=== PATIENT | female | born 1965 | race Caucasian/White ===

== ENCOUNTER 2017-05-29 13:48 | Observation (INO) ==
--- NOTE | 2017-05-29 14:03 | Emergency Department Note ---
Disposition Clinical Impression: Suicidal ideation Disposition: Transfer Short-Term Hosp Condition: Good Referrals: NO,PCP [Primary Care Provider] - Forms: ED Satisfaction Letter General Adult HPI - General Chief complaint: ED Psychiatric Symptoms Stated complaint: "SI" Time Seen by Provider: 05/29/17 13:55 Nursing Notes Reviewed: Yes Vital Signs Reviewed: Yes - Related Data Previous Rx's Medication Instructions Recorded LORazepam [Ativan] 1 mg PO TID PRN #5 tablet 08/19/15 Allergies Allergy/AdvReac Type Severity Reaction Status Date / Time Amoxicillin [From Augmentin] Allergy Anaphylaxis Verified 05/29/17 13:51 cephalexin Allergy Anaphylaxis Verified 05/29/17 13:51 clavulanic acid Allergy Anaphylaxis Verified 05/29/17 13:51 [From Augmentin] codeine Allergy Anaphylaxis Verified 05/29/17 13:51 diphenhydramine Allergy Anaphylaxis Verified 05/29/17 13:51 [From Benadryl] egg Allergy Anaphylaxis Verified 05/29/17 13:51 Erythromycin Base Allergy Anaphylaxis Verified 05/29/17 13:51 [From Erythrocin] hydroxyzine [From Vistaril] Allergy Anaphylaxis Verified 05/29/17 13:51 meperidine [From Demerol] Allergy Anaphylaxis Verified 05/29/17 13:51 nitrofurantoin Allergy Anaphylaxis Verified 05/29/17 13:51 [From Macrodantin] Penicillins Allergy Anaphylaxis Verified 05/29/17 13:51 Sulfa (Sulfonamide Allergy Anaphylaxis Verified 05/29/17 13:51 Antibiotics) Tomato Allergy Anaphylaxis Verified 05/29/17 13:51 Past Medical History - Past Medical History Medical history: Reports: asthma, COPD, CVA, diabetes, GERD, hyperlipidemia, other Psychiatric history: Reports: anxiety, depression - Social History Smoking Status: Never smoker Smokeless Tobacco Status: No Alcohol use: Reports: none Drug use: Reports: none Course Vital Signs Temperature 98.6 F 05/29/17 13:51 Pulse Rate 76 05/29/17 13:51 Respiratory Rate 18 05/29/17 13:51 Blood Pressure 135/95 05/29/17 13:51 O2 Sat by Pulse Oximetry 99 05/29/17 13:51 Temperature 98.6 F 05/29/17 13:51 Pulse Rate 76 05/29/17 13:51 Respiratory Rate 18 05/29/17 13:51 Blood Pressure 135/95 05/29/17 13:51 O2 Sat by Pulse Oximetry 99 05/29/17 13:51 Oxygen Delivery Oxygen Delivery Room Air Medical Decision Making - MDM Narrative Medical decision making narrative: I examined this patient and my medical decision-making was reviewed with the INFORMATION CODER/PA/Advanced Practice Nurse/Resident Physician. I agree with the documented findings, disposition and treatment plan as described except to the extent set forth below. Patient was seen on arrival by EMS by myself and Dr. Fleming, I agree with his evaluation & management plan, I supervised the care of the patient's stay. Patient arrived from [facility] where she had some suicidal ideations which she is denying now. She denies any homicidal ideations. She denies any hallucinations this point. They asked that we get preassigned labs that they want for psychiatric clearance were in order those, she will be a no AMA, suicide precautions with a sitter. Once her labs are back we will discuss those with her treatment center and then determine best disposition which will most likely be reevaluation by them. She is in agreement with this plan. 1520 hrs.: Patient's labs are back. We were going to discuss them with her caregivers at the psychiatric facility. My expectation is that she will be transferred back there once she has clearance. Updated patient on the plan. She has been cooperative here. 1720 hrs., after updating the psychiatric facility, they have stated that [facility] has accepted the patient for admission. Patient's in agreement with plan. I will ask them if she needs a 72 hour hold slip sign before admission. - Lab Data Result diagrams: 05/29/17 14:33 05/29/17 14:33 Lab Results 05/29/17 05/29/17 05/29/17 Range/Units 14:33 14:33 14:52 WBC 7.8 (4.3-11.1) K/mcL RBC 5.17 H (3.82-4.97) M/mcL Hgb 14.1 (11.5-15.4) g/dL Hct 44.1 (35.3-44.9) % MCV 85.3 (83.0-100.0) fL MCH 27.3 L (28.0-33.3) pg MCHC 32.0 (31.6-35.5) g/dL RDW 12.7 (11.5-14.5) % Plt Count 259 (140-400) K/mcL MPV 10.6 (9.4-12.4) fL Immature Gran % 0.4 (0-4) % Seg Neutrophils % 70.3 % Lymphocytes % 21.4 % Monocytes % 5.0 % Eosinophils % 2.4 % Basophils % 0.5 % Neutrophils # 5.5 (1.6-8.9) K/mcL Lymphocytes # 1.7 (0.6-4.6) K/mcL Monocytes # 0.4 (0.0-1.3) K/mcL Eosinophils # 0.2 (0.0-0.6) K/mcL Basophils # 0.0 (0.0-0.2) K/mcL Sodium 143 (136-145) mEq/L Potassium 4.2 (3.5-4.5) mEq/L Chloride 109 (98-109) mEq/L Carbon Dioxide 27 (19-29) mEq/L BUN 10 (7-20) mg/dL Creatinine 0.78 (0.57-1.11) mg/dL Est GFR ( Amer) > 60 (> 60) Est GFR (Non-Af Amer) > 60 (> 60) BUN/Creatinine Ratio 13 (6-26) Glucose 127 H (70-99) mg/dL Calculated Osmolality 297 (280-300) Calcium 9.9 (8.6-10.8) mg/dL Total Bilirubin 0.9 (0.2-1.2) mg/dL AST 20 (5-34) Units/L ALT 18 (0-55) Units/L Alkaline Phosphatase 124 (38-126) Units/L Serum Total Protein 7.8 (6.0-8.3) g/dL Albumin 4.1 (3.5-5.0) g/dL Globulin 3.7 H (2.4-3.5) g/dL Albumin/Globulin Ratio 1.1 (1.1-2.2) Urine Color Yellow (Yellow) Urine Clarity Clear (Clear) Urine pH 7.0 (5.0-8.0) pH Units Ur Specific [place] 1.013 (1.010-1.025) Urine Protein Negative (Neg-Trace) mg/dL Urine Glucose (UA) Normal (Normal) mg/dL Urine Ketones Negative (Negative) mg/dL Urine Blood Negative (Negative) Urine Nitrite Negative (Negative) Urine Bilirubin Negative (Negative) Urine Urobilinogen Normal (Normal) mg/dL Ur Leukocyte Esterase Negative (Negative) Ur Culture Indicated? NO (NO) Salicylates < 5.0 L (15-30) mg/dL Urine Opiates Screen (Jqgngm=453) ng/mL Acetaminophen < 1.0 L (10-30) mcg/mL Ur Barbiturates Screen (Tmmafg=972) ng/mL Ur Phencyclidine Scrn (Cutoff=25) ng/mL Ur Amphetamines Screen (Nbonmn=3499) ng/mL U Benzodiazepines Scrn (Eigzju=023) ng/mL Urine Cocaine Screen (Cutoff= 300) ng/mL U Marijuana (THC) Screen (Cutoff = 50) ng/mL Ethyl Alcohol < 10 (0-10) mg/dL 05/29/17 Range/Units 14:52 WBC (4.3-11.1) K/mcL RBC (3.82-4.97) M/mcL Hgb (11.5-15.4) g/dL Hct (35.3-44.9) % MCV (83.0-100.0) fL MCH (28.0-33.3) pg MCHC (31.6-35.5) g/dL RDW (11.5-14.5) % Plt Count (140-400) K/mcL MPV (9.4-12.4) fL Immature Gran % (0-4) % Seg Neutrophils % % Lymphocytes % % Monocytes % % Eosinophils % % Basophils % % Neutrophils # (1.6-8.9) K/mcL Lymphocytes # (0.6-4.6) K/mcL Monocytes # (0.0-1.3) K/mcL Eosinophils # (0.0-0.6) K/mcL Basophils # (0.0-0.2) K/mcL Sodium (136-145) mEq/L Potassium (3.5-4.5) mEq/L Chloride (98-109) mEq/L Carbon Dioxide (19-29) mEq/L BUN (7-20) mg/dL Creatinine (0.57-1.11) mg/dL Est GFR ( Amer) (> 60) Est GFR (Non-Af Amer) (> 60) BUN/Creatinine Ratio (6-26) Glucose (70-99) mg/dL Calculated Osmolality (280-300) Calcium (8.6-10.8) mg/dL Total Bilirubin (0.2-1.2) mg/dL AST (5-34) Units/L ALT (0-55) Units/L Alkaline Phosphatase (38-126) Units/L Serum Total Protein (6.0-8.3) g/dL Albumin (3.5-5.0) g/dL Globulin (2.4-3.5) g/dL Albumin/Globulin Ratio (1.1-2.2) Urine Color (Yellow) Urine Clarity (Clear) Urine pH (5.0-8.0) pH Units Ur Specific [place] (1.010-1.025) Urine Protein (Neg-Trace) mg/dL Urine Glucose (UA) (Normal) mg/dL Urine Ketones (Negative) mg/dL Urine Blood (Negative) Urine Nitrite (Negative) Urine Bilirubin (Negative) Urine Urobilinogen (Normal) mg/dL Ur Leukocyte Esterase (Negative) Ur Culture Indicated? (NO) Salicylates (15-30) mg/dL Urine Opiates Screen Negative (Gyocuu=663) ng/mL Acetaminophen (10-30) mcg/mL Ur Barbiturates Screen Negative (Icakzh=864) ng/mL Ur Phencyclidine Scrn Negative (Cutoff=25) ng/mL Ur Amphetamines Screen Negative (Ktkhtk=7360) ng/mL U Benzodiazepines Scrn Negative (Hqioed=885) ng/mL Urine Cocaine Screen Negative (Cutoff= 300) ng/mL U Marijuana (THC) Screen Negative (Cutoff = 50) ng/mL Ethyl Alcohol (0-10) mg/dL
[2017-05-29 14:39] LABS: Basophils % 0.5 %; Eosinophils # 0.2 K/mcL (0.0-0.6); Eosinophils % 2.4 %; Hematocrit 44.1 % (35.3-44.9); Hemoglobin 14.1 g/dL (11.5-15.4); Immature Granulocytes % 0.4 % (0-4); Lymphocytes # 1.7 K/mcL (0.6-4.6); Lymphocytes % 21.4 %; Mean Corpuscular Hemoglobin 27.3 pg (28.0-33.3); Mean Corpuscular Volume 85.3 fL (83.0-100.0); Mean Platelet Volume 10.6 fL (9.4-12.4); Monocytes # 0.4 K/mcL (0.0-1.3); Neutrophils # 5.5 K/mcL (1.6-8.9); Platelet Count 259 K/mcL (140-400); Red Blood Count 5.17 M/mcL (3.82-4.97); Red Cell Distribution Width 12.7 % (11.5-14.5); Segmented Neutrophils % 70.3 %
[2017-05-29 14:55] LABS: Alanine Aminotransferase 18 Units/L (0-55); Albumin 4.1 g/dL (3.5-5.0); Albumin/Globulin Ratio 1.1 (1.1-2.2); Alkaline Phosphatase 124 Units/L (38-126); Aspartate Amino Transferase 20 Units/L (5-34); BUN/Creatinine Ratio 13 (6-26); Bilirubin,Total 0.9 mg/dL (0.2-1.2); Blood Urea Nitrogen 10 mg/dL (7-20); Calcium 9.9 mg/dL (8.6-10.8); Carbon Dioxide 27 mEq/L (19-29); Chloride 109 mEq/L (98-109); Globulin 3.7 g/dL (2.4-3.5); Glucose 127 mg/dL (70-99); Osmolality,Calculated 297 (280-300); Potassium 4.2 mEq/L (3.5-4.5); Sodium 143 mEq/L (136-145); Total Protein 7.8 g/dL (6.0-8.3); eGFR For African Americans > 60 (> 60); eGFR For Non-African Americans > 60 (> 60)
[2017-05-29 15:01] LABS: Bilirubin,Urine Negative (Negative); Blood,Urine Negative (Negative); Color,Urine Yellow (Yellow); Glucose,Urine (UA) Normal (Normal); Ketones,Urine Negative (Negative); Leukocyte Esterase,Urine Negative (Negative); Nitrite,Urine Negative (Negative); Protein,Urine Negative (Neg-Trace); Specific Gravity,Urine 1.013 (1.010-1.025); Urobilinogen,Urine Normal (Normal)
[2017-05-29 15:05] LABS: Acetaminophen < 1.0 mcg/mL (10-30); Ethanol < 10 mg/dL (0-10); Salicylate < 5.0 mg/dL (15-30)
--- NOTE | 2017-05-29 15:05 | Emergency Department Note ---
Disposition Clinical Impression: Suicidal ideation Disposition: Transfer Short-Term Hosp Condition: Good Time of Disposition: 16:58 Psych HPI - General Chief Complaint: ED Psychiatric Symptoms Stated Complaint: "SI" Time Seen by Provider: 05/29/17 13:55 Source: patient Mode of arrival: ambulatory Limitations: no limitations Nursing Notes Reviewed: Yes Vital Signs Reviewed: Yes - History of Present Illness HPI Narrative: 51-year-old female presents for feeling overwhelmed and stress. She currently denies any suicidal or homicidal ideation. She has been having racing thoughts through her mind all day today. She went to [facility] but was unable to be evaluated at that time. She reports being sent over for medical clearance. Patients gabapentin was recently increased from 300 to 900, 3 days ago. Otherwise no other new medication changes. She does have access to guns at home but they are in a locked box. She lives at home with ex- and his current and family. Her stresses are mainly due to family and home issues. She denies any drug or alcohol use. Denies any visual or auditory hallucinations. She denies any recent psychiatric hospitalization here. Denies any physical complaints at this time. She has a form from [facility] requesting inpatient placement for suicidal ideation lab requests which include CBC, 7, UDS, UA, Blood Alcohol and . Pt complaint: feels depressed, anxiety - Related Data Previous Rx's Medication Instructions Recorded LORazepam [Ativan] 1 mg PO TID PRN #5 tablet 08/19/15 Allergies Allergy/AdvReac Type Severity Reaction Status Date / Time Amoxicillin [From Augmentin] Allergy Anaphylaxis Verified 05/29/17 13:51 cephalexin Allergy Anaphylaxis Verified 05/29/17 13:51 clavulanic acid Allergy Anaphylaxis Verified 05/29/17 13:51 [From Augmentin] codeine Allergy Anaphylaxis Verified 05/29/17 13:51 diphenhydramine Allergy Anaphylaxis Verified 05/29/17 13:51 [From Benadryl] egg Allergy Anaphylaxis Verified 05/29/17 13:51 Erythromycin Base Allergy Anaphylaxis Verified 05/29/17 13:51 [From Erythrocin] hydroxyzine [From Vistaril] Allergy Anaphylaxis Verified 05/29/17 13:51 meperidine [From Demerol] Allergy Anaphylaxis Verified 05/29/17 13:51 nitrofurantoin Allergy Anaphylaxis Verified 05/29/17 13:51 [From Macrodantin] Penicillins Allergy Anaphylaxis Verified 05/29/17 13:51 Sulfa (Sulfonamide Allergy Anaphylaxis Verified 05/29/17 13:51 Antibiotics) Tomato Allergy Anaphylaxis Verified 05/29/17 13:51 All systems ED: reviewed and negative except as stated. Constitutional: Denies: fever, chills Cardiovascular: Denies: chest pain Respiratory: Denies: cough, dyspnea Gastrointestinal: Denies: abdominal pain, nausea, vomiting Genitourinary: Denies: urgency, dysuria Musculoskeletal: Denies: back pain Integumentary: Denies: rash Neurological: Denies: headache Psychiatric: Denies: suicidal thoughts, homicidal thoughts, auditory hallucinations, visual hallucinations Past Medical History - Past Medical History Attestation: Yes The following information was validated with the patient. Source: patient Medical history: Reports: asthma, COPD, CVA, diabetes, GERD, hyperlipidemia, other Psychiatric history: Reports: anxiety, depression - Social History Smoking Status: Never smoker Smokeless Tobacco Status: No Alcohol use: Reports: none Drug use: Reports: none Physical Exam - General General appearance: alert, in no apparent distress - Head Head exam: atraumatic, normocephalic, normal inspection - Eye Eye exam: Present: normal appearance, PERRL, EOMI - ENT ENT exam: normal exam, normal oropharynx, mucous membranes moist - Neck Neck exam: Present: normal inspection, full ROM, trachea midline - Chest Chest inspection: Present: normal inspection, symmetric chest wall rise - Respiratory Respiratory exam: Present: normal lung sounds bilaterally. Absent: respiratory distress, wheezes - Cardiovascular Cardiovascular exam: Present: regular rate, normal rhythm, normal heart sounds - Abdominal Exam Abdominal exam: Present: soft, Non-Tender, normal bowel sounds. Absent: tenderness, distention, guarding, rebound, rigidity - Extremities Exam Extremities exam: Present: normal inspection, full ROM, normal capillary refill. Absent: tenderness, pedal edema, calf tenderness - Back Exam Back exam: Present: normal inspection, full ROM. Absent: tenderness - Neurological Exam Neurological exam: Present: alert, oriented X3, normal gait - Psychiatric Psychiatric exam: Present: normal affect, normal mood - Skin Skin exam: Present: warm, dry, intact, normal color Course Course Narrative: 51-year-old female presents for medical clearance for [facility]. She currently denies any suicidal or homicidal ideation. Vital signs reviewed and are stable. She appears in no acute distress. Physical exam is otherwise unremarkable. Labs were drawn and reviewed. They are unremarkable other than glucose 127. Results have been faxed to [facility] at [phone]. Her continues to be a sitter at bedside. Impression is SI. - Reevaluation(s) Reevaluation #1: Informed by [facility] that patient was admitted with a bed down at [address] Spoke with the patient and she was unaware of this. Patient has been accepted by [facility]. Time: 17:28 Vital Signs Temperature 98.6 F 05/29/17 13:51 Pulse Rate 76 05/29/17 13:51 Respiratory Rate 18 05/29/17 13:51 Blood Pressure 135/95 05/29/17 13:51 O2 Sat by Pulse Oximetry 99 05/29/17 13:51 Temperature 98.6 F 05/29/17 13:51 Pulse Rate 76 05/29/17 13:51 Respiratory Rate 18 05/29/17 13:51 Blood Pressure 135/95 05/29/17 13:51 O2 Sat by Pulse Oximetry 99 05/29/17 13:51 Oxygen Delivery Oxygen Delivery Room Air Psych - Lab Data Lab results reviewed: Yes I reviewed the patient's lab results. Result diagrams: 05/29/17 14:33 05/29/17 14:33 Lab Results 05/29/17 05/29/17 05/29/17 Range/Units 14:33 14:33 14:52 WBC 7.8 (4.3-11.1) K/mcL RBC 5.17 H (3.82-4.97) M/mcL Hgb 14.1 (11.5-15.4) g/dL Hct 44.1 (35.3-44.9) % MCV 85.3 (83.0-100.0) fL MCH 27.3 L (28.0-33.3) pg MCHC 32.0 (31.6-35.5) g/dL RDW 12.7 (11.5-14.5) % Plt Count 259 (140-400) K/mcL MPV 10.6 (9.4-12.4) fL Immature Gran % 0.4 (0-4) % Seg Neutrophils % 70.3 % Lymphocytes % 21.4 % Monocytes % 5.0 % Eosinophils % 2.4 % Basophils % 0.5 % Neutrophils # 5.5 (1.6-8.9) K/mcL Lymphocytes # 1.7 (0.6-4.6) K/mcL Monocytes # 0.4 (0.0-1.3) K/mcL Eosinophils # 0.2 (0.0-0.6) K/mcL Basophils # 0.0 (0.0-0.2) K/mcL Sodium 143 (136-145) mEq/L Potassium 4.2 (3.5-4.5) mEq/L Chloride 109 (98-109) mEq/L Carbon Dioxide 27 (19-29) mEq/L BUN 10 (7-20) mg/dL Creatinine 0.78 (0.57-1.11) mg/dL Est GFR ( Amer) > 60 (> 60) Est GFR (Non-Af Amer) > 60 (> 60) BUN/Creatinine Ratio 13 (6-26) Glucose 127 H (70-99) mg/dL Calculated Osmolality 297 (280-300) Calcium 9.9 (8.6-10.8) mg/dL Total Bilirubin 0.9 (0.2-1.2) mg/dL AST 20 (5-34) Units/L ALT 18 (0-55) Units/L Alkaline Phosphatase 124 (38-126) Units/L Serum Total Protein 7.8 (6.0-8.3) g/dL Albumin 4.1 (3.5-5.0) g/dL Globulin 3.7 H (2.4-3.5) g/dL Albumin/Globulin Ratio 1.1 (1.1-2.2) Urine Color Yellow (Yellow) Urine Clarity Clear (Clear) Urine pH 7.0 (5.0-8.0) pH Units Ur Specific [place] 1.013 (1.010-1.025) Urine Protein Negative (Neg-Trace) mg/dL Urine Glucose (UA) Normal (Normal) mg/dL Urine Ketones Negative (Negative) mg/dL Urine Blood Negative (Negative) Urine Nitrite Negative (Negative) Urine Bilirubin Negative (Negative) Urine Urobilinogen Normal (Normal) mg/dL Ur Leukocyte Esterase Negative (Negative) Ur Culture Indicated? NO (NO) Salicylates < 5.0 L (15-30) mg/dL Urine Opiates Screen (Djlsru=193) ng/mL Acetaminophen < 1.0 L (10-30) mcg/mL Ur Barbiturates Screen (Feetsd=611) ng/mL Ur Phencyclidine Scrn (Cutoff=25) ng/mL Ur Amphetamines Screen (Orusep=5179) ng/mL U Benzodiazepines Scrn (Yehmzp=866) ng/mL Urine Cocaine Screen (Cutoff= 300) ng/mL U Marijuana (THC) Screen (Cutoff = 50) ng/mL Ethyl Alcohol < 10 (0-10) mg/dL 05/29/17 Range/Units 14:52 WBC (4.3-11.1) K/mcL RBC (3.82-4.97) M/mcL Hgb (11.5-15.4) g/dL Hct (35.3-44.9) % MCV (83.0-100.0) fL MCH (28.0-33.3) pg MCHC (31.6-35.5) g/dL RDW (11.5-14.5) % Plt Count (140-400) K/mcL MPV (9.4-12.4) fL Immature Gran % (0-4) % Seg Neutrophils % % Lymphocytes % % Monocytes % % Eosinophils % % Basophils % % Neutrophils # (1.6-8.9) K/mcL Lymphocytes # (0.6-4.6) K/mcL Monocytes # (0.0-1.3) K/mcL Eosinophils # (0.0-0.6) K/mcL Basophils # (0.0-0.2) K/mcL Sodium (136-145) mEq/L Potassium (3.5-4.5) mEq/L Chloride (98-109) mEq/L Carbon Dioxide (19-29) mEq/L BUN (7-20) mg/dL Creatinine (0.57-1.11) mg/dL Est GFR ( Amer) (> 60) Est GFR (Non-Af Amer) (> 60) BUN/Creatinine Ratio (6-26) Glucose (70-99) mg/dL Calculated Osmolality (280-300) Calcium (8.6-10.8) mg/dL Total Bilirubin (0.2-1.2) mg/dL AST (5-34) Units/L ALT (0-55) Units/L Alkaline Phosphatase (38-126) Units/L Serum Total Protein (6.0-8.3) g/dL Albumin (3.5-5.0) g/dL Globulin (2.4-3.5) g/dL Albumin/Globulin Ratio (1.1-2.2) Urine Color (Yellow) Urine Clarity (Clear) Urine pH (5.0-8.0) pH Units Ur Specific [place] (1.010-1.025) Urine Protein (Neg-Trace) mg/dL Urine Glucose (UA) (Normal) mg/dL Urine Ketones (Negative) mg/dL Urine Blood (Negative) Urine Nitrite (Negative) Urine Bilirubin (Negative) Urine Urobilinogen (Normal) mg/dL Ur Leukocyte Esterase (Negative) Ur Culture Indicated? (NO) Salicylates (15-30) mg/dL Urine Opiates Screen Negative (Kdgxci=000) ng/mL Acetaminophen (10-30) mcg/mL Ur Barbiturates Screen Negative (Mhhixh=977) ng/mL Ur Phencyclidine Scrn Negative (Cutoff=25) ng/mL Ur Amphetamines Screen Negative (Sbvkfn=9757) ng/mL U Benzodiazepines Scrn Negative (Ilhjff=028) ng/mL Urine Cocaine Screen Negative (Cutoff= 300) ng/mL U Marijuana (THC) Screen Negative (Cutoff = 50) ng/mL Ethyl Alcohol (0-10) mg/dL Psychiatric Medical Clearance - Medical Clearance Checklist Medical History: No Social History Section defined Current Vitals: Last Vital Signs Temp 98.6 F 05/29/17 13:51 Pulse 76 05/29/17 13:51 Resp 18 05/29/17 13:51 BP 135/95 05/29/17 13:51 Pulse Ox 99 05/29/17 13:51 Psychiatric Lab Panel: Drug Levels and Toxicity 05/29/17 05/29/17 14:33 14:52 Urine Opiates Screen Negative Acetaminophen < 1.0 L Ur Barbiturates Screen Negative Ur Phencyclidine Scrn Negative Ur Amphetamines Screen Negative U Benzodiazepines Scrn Negative Urine Cocaine Screen Negative U Marijuana (THC) Screen Negative Ethyl Alcohol < 10 Abnormal Labs: Abnormal lab results RBC 5.17 M/mcL (3.82-4.97) H 05/29/17 14:33 MCH 27.3 pg (28.0-33.3) L 05/29/17 14:33 Glucose 127 mg/dL (70-99) H 05/29/17 14:33 Globulin 3.7 g/dL (2.4-3.5) H 05/29/17 14:33 Salicylates < 5.0 mg/dL (15-30) L 05/29/17 14:33 Acetaminophen < 1.0 mcg/mL (10-30) L 05/29/17 14:33 Statement of Medical Clearance: I have evaluated the patient, reviewed diagnostic information, and certify that the patient's medical condition is sufficiently stable that transfer to the psychiatric unit does not pose a significant risk of deterioration.
[2017-05-29 15:06] LABS: Amphetamine Screen,Urine Negative ng/mL (Cutoff=1000); Barbiturate Screen,Urine Negative ng/mL (Cutoff=200); Benzodiazepines Screen,Urine Negative ng/mL (Cutoff=200); Cannabinoid Screen,Urine Negative ng/mL (Cutoff = 50); Clarity,Urine Clear (Clear); Cocaine Screen,Urine Negative ng/mL (Cutoff= 300); Opiate Screen,Urine Negative ng/mL (Cutoff=300); Phencyclidine Screen,Urine Negative ng/mL (Cutoff=25)
[2017-05-29] MEDS ORDERED: *HR* LORazepam 1 MG TABLET PO PRN (20:01)
[2017-05-29] MEDS ORDERED: Haloperidol Lactate 5 MG/ML VIAL IM PRN (20:01)
[2017-05-29] MEDS ORDERED: traZODone 50 MG TABLET PO PRN (20:01)
[2017-05-29] MEDS ORDERED: hydrOXYzine pamoate 25 MG CAPSULE PO PRN (20:01)
[2017-05-29] MEDS ORDERED: MOM Conc 10 ML UD.LIQ PO PRN (20:01)
[2017-05-29] MEDS ORDERED: Acetaminophen 325 MG TABLET PO PRN (20:01)
[2017-05-29] MEDS ORDERED: *HR* LORazepam 2 MG/ML VIAL IM PRN (20:01)
[2017-05-29] MEDS ORDERED: Fluticasone Propionate Nasal 50 MCG/SPRAY BOTTLE NS PRN (20:48)
[2017-05-29] MEDS ORDERED: *HR* LORazepam 0.5 MG TABLET PO PRN (20:48)
[2017-05-29] MEDS ORDERED: Ipratropium/Albuterol Neb 3 ML IH PRN (20:48)
[2017-05-29] MEDS ORDERED: *HR* HYDROcodone/Acet 5/325 mg TABLET PO PRN (20:48)
[2017-05-30] MEDS ORDERED: Famotidine 20 MG TABLET PO SCH (07:30)
[2017-05-30] MEDS: Gabapentin 300 MG CAPSULE PO SCH ×3 (08:36→21:01)
[2017-05-30] MEDS: Aspirin Enteric Coated 325 MG Tablet PO SCH (08:36)
[2017-05-30] MEDS: Famotidine 20 MG TABLET PO SCH ×2 (08:37→17:11)
[2017-05-30] MEDS: Furosemide 40 MG TABLET PO SCH (08:37)
[2017-05-30] MEDS: Calcium 500 + Vit D PO SCH ×2 (08:37→21:01)
--- NOTE | 2017-05-30 11:56 | Discharge Summary ---
Date of Encounter: 05/31/17 Time of Encounter: 11:30 History of Present Illness Chief complaint: Suicidal ideation Admitted From: Emergency Dept History of Present Illness: Ms. Jose Barr is a 51 year old female admitted from the emergency department on observation status for evaluation of suicidal ideation. Patient reports that her medication were changed recently and gabapentin dose increased by her family doctor she notices change in her sleep and irritability and started having suicidal ideation and she was evaluated at the crisis center and referred to the emergency room for admission. Patient has no previous psychiatric history of treatment and denies any previous suicide attempts and denies any intent to harm herself, she has several grandchildren and she would not do any harm to herself or to them. She reported irritability and change and wants and she believed this resulted from medication changes. She did admit to having some stress in her marriage and some conflicts with her but it is not serious enough to make her suicidal. Past Med Surg Social Fam HX - Past Medical History Medical history: asthma, COPD, CVA, diabetes, GERD, hyperlipidemia, other - Past Psychiatric History Psychiatric history: Reports: no psych history - Social History Smoking Status: Never smoker Smokeless Tobacco Status: No Alcohol use: none Drug use: none - Family History Mother Age: 84 Family Member Ethnicity: Non- Living Status: Still Living Hx Family Cardiac Disorders: Yes Hx Family Endocrine Disorder: Yes Hx Family Neurologic Disorders: Yes Medications - Discharge Medications Albuterol Sulfate [Proair Hfa] 2 puff IH Q6H PRN 05/29/17 [History] Aspirin [Ecotrin] 325 mg PO DAILY 05/29/17 [History] Calcium Carbonate/Vitamin D3 [Calcium 500 + Vit D Caplet] 1 each PO BID [History] Cholecalciferol (Vitamin D3) [Vitamin D] 50,000 unit PO QWEEK 05/29/17 [History] Esomeprazole Magnesium [Nexium] 20 mg PO DAILY 05/29/17 [History] Fexofenadine HCl [Allergy Relief] 180 mg PO DAILY 05/29/17 [History] Fluticasone Propionate Nasal [Flonase] 1 spray NS DAILY 05/29/17 [History] Furosemide [Lasix] 40 mg PO DAILY 05/29/17 [History] Gabapentin [Neurontin] 300 mg PO TID 05/29/17 [History] HYDROcodone/Acet 5/325 mg [Eckerman 5-325 mg] 1 tab PO BID PRN 05/29/17 [History] Ipratropium/Albuterol Neb [Duoneb] 3 ml IH Q6HR PRN 05/29/17 [History] Isosorbide MONOnitrate (24 HR) [Imdur] 60 mg PO DAILY 05/29/17 [History] LORazepam [Ativan] 0.5 mg PO DAILY PRN 05/29/17 [History] Montelukast [Singulair] 10 mg PO DAILY 05/29/17 [History] Omalizumab [XOLAIR (For Outpatient Infusion)] 150 mg SQ Q2W 05/29/17 [History] Potassium Chloride [Klor-Con 10] 10 meq PO DAILY 05/29/17 [History] Ranitidine HCl [Acid Literacy Coordinator] 150 mg PO BID 05/29/17 [History] Rosuvastatin [Crestor] 20 mg PO HS 05/29/17 [History] Selenium Sulfide 1 appl TP DAILY 05/29/17 [History] Zolpidem [Ambien] 10 mg PO HS PRN 05/29/17 [History] Allergies Amoxicillin [From Augmentin] Allergy (Verified 05/29/17 13:51) Anaphylaxis cephalexin Allergy (Verified 05/29/17 13:51) Anaphylaxis clavulanic acid [From Augmentin] Allergy (Verified 05/29/17 13:51) Anaphylaxis codeine Allergy (Verified 05/29/17 13:51) Anaphylaxis diphenhydramine [From Benadryl] Allergy (Verified 05/29/17 13:51) Anaphylaxis egg Allergy (Verified 05/29/17 13:51) Anaphylaxis Erythromycin Base [From Erythrocin] Allergy (Verified 05/29/17 13:51) Anaphylaxis hydroxyzine [From Vistaril] Allergy (Verified 05/29/17 13:51) Anaphylaxis meperidine [From Demerol] Allergy (Verified 05/29/17 13:51) Anaphylaxis nitrofurantoin [From Macrodantin] Allergy (Verified 05/29/17 13:51) Anaphylaxis Penicillins Allergy (Verified 05/29/17 13:51) Anaphylaxis Sulfa (Sulfonamide Antibiotics) Allergy (Verified 05/29/17 13:51) Anaphylaxis Tomato Allergy (Verified 05/29/17 13:51) Anaphylaxis Review of Systems Psychiatric: Reports: anxiety, mood swings Mental Status Exam - Mental Status Exam Patient orientation: Yes Person, Yes Time, Yes Place Level of alertness: Alert Patient appearance: Appropriate, Well Groomed, Obese Behavior: calm, cooperative, anxious Psychomotor activity: Increased Eye contact: Maintains Eye Contact Mood description: Anxious, Labile Affect description: congruent with mood, labile Speech pattern: Normal rate, Normal rhythm, Normal tone Speech Volume: Normal Thought process: Linear, Goal Oriented Thought Content: No Suicidal ideation, No Homicidal ideation, No Overt delusions Perceptual Disturbances: No Auditory hallucinations, No Visual hallucinations Judgment: Limited Insight: Partial Results - Vital Signs Vital signs: Temp Pulse Resp BP Pulse Ox 98.4 F 81 18 120/74 96 05/30/17 08:31 05/30/17 08:31 05/30/17 08:31 05/30/17 08:31 05/29/17 19:09 - Labs Labs: Laboratory Last Values WBC 7.8 K/mcL (4.3-11.1) 05/29/17 14:33 RBC 5.17 M/mcL (3.82-4.97) H 05/29/17 14:33 Hgb 14.1 g/dL (11.5-15.4) 05/29/17 14:33 Hct 44.1 % (35.3-44.9) 05/29/17 14:33 MCV 85.3 fL (83.0-100.0) 05/29/17 14:33 MCH 27.3 pg (28.0-33.3) L 05/29/17 14:33 MCHC 32.0 g/dL (31.6-35.5) 05/29/17 14:33 RDW 12.7 % (11.5-14.5) 05/29/17 14:33 Plt Count 259 K/mcL (140-400) 05/29/17 14:33 MPV 10.6 fL (9.4-12.4) 05/29/17 14:33 Immature Gran % 0.4 % (0-4) 05/29/17 14:33 Seg Neutrophils % 70.3 % 05/29/17 14:33 Lymphocytes % 21.4 % 05/29/17 14:33 Monocytes % 5.0 % 05/29/17 14:33 Eosinophils % 2.4 % 05/29/17 14:33 Basophils % 0.5 % 05/29/17 14:33 Neutrophils # 5.5 K/mcL (1.6-8.9) 05/29/17 14:33 Lymphocytes # 1.7 K/mcL (0.6-4.6) 05/29/17 14:33 Monocytes # 0.4 K/mcL (0.0-1.3) 05/29/17 14:33 Eosinophils # 0.2 K/mcL (0.0-0.6) 05/29/17 14:33 Basophils # 0.0 K/mcL (0.0-0.2) 05/29/17 14:33 Sodium 143 mEq/L (136-145) 05/29/17 14:33 Potassium 4.2 mEq/L (3.5-4.5) 05/29/17 14:33 Chloride 109 mEq/L (98-109) 05/29/17 14:33 Carbon Dioxide 27 mEq/L (19-29) 05/29/17 14:33 BUN 10 mg/dL (7-20) 05/29/17 14:33 Creatinine 0.78 mg/dL (0.57-1.11) 05/29/17 14:33 Est GFR ( Amer) > 60 (> 60) 05/29/17 14:33 Est GFR (Non-Af Amer) > 60 (> 60) 05/29/17 14:33 BUN/Creatinine Ratio 13 (6-26) 05/29/17 14:33 Glucose 127 mg/dL (70-99) H 05/29/17 14:33 POC Glucose 99 (58-89) H 05/30/17 07:17 Calculated Osmolality 297 (280-300) 05/29/17 14:33 Calcium 9.9 mg/dL (8.6-10.8) 05/29/17 14:33 Total Bilirubin 0.9 mg/dL (0.2-1.2) 05/29/17 14:33 AST 20 Units/L (5-34) 05/29/17 14:33 ALT 18 Units/L (0-55) 05/29/17 14:33 Alkaline Phosphatase 124 Units/L (38-126) 05/29/17 14:33 Serum Total Protein 7.8 g/dL (6.0-8.3) 05/29/17 14:33 Albumin 4.1 g/dL (3.5-5.0) 05/29/17 14:33 Globulin 3.7 g/dL (2.4-3.5) H 05/29/17 14:33 Albumin/Globulin Ratio 1.1 (1.1-2.2) 05/29/17 14:33 Urine Color Yellow (Yellow) 05/29/17 14:52 Urine Clarity Clear (Clear) 05/29/17 14:52 Urine pH 7.0 pH Units (5.0-8.0) 05/29/17 14:52 Ur Specific Mercer 1.013 (1.010-1.025) 05/29/17 14:52 Urine Protein Negative mg/dL (Neg-Trace) 05/29/17 14:52 Urine Glucose (UA) Normal mg/dL (Normal) 05/29/17 14:52 Urine Ketones Negative mg/dL (Negative) 05/29/17 14:52 Urine Blood Negative (Negative) 05/29/17 14:52 Urine Nitrite Negative (Negative) 05/29/17 14:52 Urine Bilirubin Negative (Negative) 05/29/17 14:52 Urine Urobilinogen Normal mg/dL (Normal) 05/29/17 14:52 Ur Leukocyte Esterase Negative (Negative) 05/29/17 14:52 Ur Culture Indicated? NO (NO) 05/29/17 14:52 Salicylates < 5.0 mg/dL (15-30) L 05/29/17 14:33 Urine Opiates Screen Negative ng/mL ([id number]=092) 05/29/17 14:52 Acetaminophen < 1.0 mcg/mL (10-30) L 05/29/17 14:33 Ur Barbiturates Screen Negative ng/mL (Ejjnjv=498) 05/29/17 14:52 Ur Phencyclidine Scrn Negative ng/mL (Cutoff=25) 05/29/17 14:52 Ur Amphetamines Screen Negative ng/mL (Hkaarh=9932) 05/29/17 14:52 U Benzodiazepines Scrn Negative ng/mL (Reabeu=106) 05/29/17 14:52 Urine Cocaine Screen Negative ng/mL (Cutoff= 300) 05/29/17 14:52 U Marijuana (THC) Screen Negative ng/mL (Cutoff = 50) 05/29/17 14:52 Ethyl Alcohol < 10 mg/dL (0-10) 05/29/17 14:33 Diagnosis - Discharge Diagnosis (1) Suicidal ideation Status: Acute Assessment and Plan - Patient/Caregiver Discharge Instructions Activity: resume usual activities as tolerated Diet: regular diet - Follow up Plan Follow up with: Damir [facility] [Outside] Jerry Slade MD [Partnered Physician] - 06/05/17 3:15 pm (The above appointment is with Dr. Slade for ongoing health and medication assessment and management.) Functional capacity at discharge: independent ambulation Overall status at discharge: Stable Disposition: Home, Self-Care Provider Date of admission: 05/29/17 17:33 Primary care physician: PCP NO Discharging clinician: Eleanor Slater Hospital Course Hospital course: Ms. Jose Barr is a 51 year old female admitted for suicidal ideation. Please see history of present illness. On the unit patient was started on her medication, she participated in groups and activities, she denied any suicidal ideation. Her discharge plans were completed by social work. On discharge she was medically stable, nonsuicidal and future oriented. She is planning to follow-up at the mental health clinic as scheduled. - Time Spent with Patient Total time spent providing and/or coordinating discharge services: Less than 30 minutes Procedures - Procedures Procedures: Medication Management, Crisis Stabilization, Supportive Therapy, Group Therapy, Psychoeducational Therapy Quality - Multiple Antipsychotics Patient discharged on 2 or more antipsychotic medications: No
[2017-05-30] MEDS ORDERED: FEXOFENADINE PO SCH (21:00)
[2017-05-30] MEDS: Isosorbide MONOnitrate (24 HR) 60 MG TAB.ER.24H PO SCH (21:01)
[2017-05-31 08:32] VITALS: BP 113/70
[2017-05-31] MEDS: Aspirin Enteric Coated 325 MG Tablet PO SCH (08:54)
[2017-05-31] MEDS: Gabapentin 300 MG CAPSULE PO SCH (08:55)
[2017-05-31] MEDS: Isosorbide MONOnitrate (24 HR) 60 MG TAB.ER.24H PO SCH (08:55)
[2017-05-31] MEDS: Furosemide 40 MG TABLET PO SCH (08:55)
[2017-05-31] MEDS: Calcium 500 + Vit D PO SCH (08:56)
[2017-05-31] MEDS ORDERED: Loratadine 10 MG TABLET PO SCH (09:00)
[2017-05-31] MEDS: Famotidine 20 MG TABLET PO SCH (09:48)
== END 2017-05-31 13:45 | disposition home or self-care (01) ==
LOC: EMEROO 13:48 → 1ANU 17:33 → INTOOBSV 17:33 → 1ANU 19:16
PROVIDERS: ADMIT Psychiatry & Neurology Psychiatry; ATTEND Psychiatry & Neurology Psychiatry